=== PATIENT | female | born 1980 | race African-American/Black ===

== ENCOUNTER 2023-10-15 19:11 | Emergency (ER) | payer SELFPAY ==
[2023-10-15] MEDS ORDERED: Acetaminophen 500 MG TAB ONE (19:35)
[2023-10-15] MEDS ORDERED: Lidocaine 1% (PF) 30 ML VIAL ONE (19:39)
[2023-10-15] MEDS ORDERED: Sulfameth/Trimethoprim DS 800-160mg TAB ONE (20:08)
== END 2023-10-15 20:20 | disposition home or self-care (01) ==
LOC: NAV ERS 19:11
DX: N76.4 Abscess of vulva (principal)
CPT/HCPCS: 56405; J2001

== ENCOUNTER 2023-10-17 11:43 | Emergency (ER) | payer SELFPAY | END 2023-10-17 12:52 | disposition home or self-care (01) | LOC: NAV ERS 11:43 | DX: L02.31 Cutaneous abscess of buttock (principal) | CPT/HCPCS: 99282 ==

== ENCOUNTER 2023-11-22 20:25 | Emergency (ER) | payer SELFPAY ==
[2023-11-22] MEDS ORDERED: Clindamycin 150 MG CAP ONE (21:27)
== END 2023-11-22 21:48 | disposition home or self-care (01) ==
LOC: NAV ERS 20:25
DX: L02.215 Cutaneous abscess of perineum (principal)
CPT/HCPCS: 99282

== ENCOUNTER 2023-11-25 11:37 | Emergency (ER) | payer SELFPAY ==
[2023-11-25] MEDS ORDERED: Lidocaine 1% w/Epinephrine 1:100K 20 ML VIAL ONE (12:29)
== END 2023-11-25 13:25 | disposition home or self-care (01) ==
LOC: NAV ERS 11:37
DX: K61.0 Anal abscess (principal)
CPT/HCPCS: 56405

== ENCOUNTER 2023-11-28 09:22 | Emergency (ER) | payer SELFPAY | END 2023-11-28 10:29 | disposition home or self-care (01) | LOC: NAV ERS 09:22 | DX: N76.4 Abscess of vulva (principal) | CPT/HCPCS: 99282 ==

== ENCOUNTER 2024-06-06 01:40 | Emergency (ER) | payer SELFPAY ==
[2024-06-06] MEDS ORDERED: Ketorolac Tromethamine 30 MG (1 mL) VIAL ONE (01:55)
== END 2024-06-06 02:27 | disposition home or self-care (01) ==
LOC: NAV ERS 01:40
DX: G44.209 Tension-type headache, unspecified, not intractable (principal)
CPT/HCPCS: 96372; 99283; J1885